=== PATIENT | female | born 1995 | race Caucasian/White ===

== ENCOUNTER 2017-02-09 17:34 | Emergency (ER) | payer BC ==
[2017-02-09 18:05] VITALS: BP 129/61
--- NOTE | 2017-02-09 18:19 | UC ---
Hand/Wrist HPI - HPI Summary HPI Summary: Pt presents with right hand pain and swelling for 3 days after punching a wall. Pt says she punched a wall out of anger. Next day had pain and swelling of right hand and wrist. Has been taking tylenol for pain. Denies previous injury, numbness, or tingling. - History Of Current Complaint Chief Complaint: UCUpperExtremity Stated Complaint: HAND INJURY Time Seen by Provider: 02/09/17 18:19 Hx Obtained From: Patient Hx Last Menstrual Period: 01/17/17 ?: No Onset/Duration: Sudden Onset Severity Initially: Severe Severity Currently: Severe Pain Intensity: 9 Pain Scale Used: 0-10 Numeric Character Of Pain: Sharp, Aching, Stiffness Aggravating Factor(s): Movement, Flexion, Extension Alleviating Factor(s): Rest, Ice - Allergies/Home Medications Allergies/Adverse Reactions: Allergies Allergy/AdvReac Type Severity Reaction Status Date / Time No Known Allergies Allergy Verified 02/09/17 18:05 Home Medications: Home Medications NK [No Home Medications Reported] 02/09/17 [History Confirmed 02/09/17] PMH/Surg Hx/FS Hx/Imm Hx Previously Healthy: Yes - Surgical History Surgical History: None - Family History Known Family History: Positive: None - Social History Occupation: Student Lives: Dormitory/Roommates Alcohol Use: Rare Substance Use Type: None Smoking Status (MU): Never Smoked Tobacco Review of Systems Constitutional: Negative Skin: Bruising - Right palm and dorsal hand Respiratory: Negative Cardiovascular: Negative Neurovascular: Negative Musculoskeletal: Decreased ROM - Right hand/fingers, Edema - Right hand, Other: - Pain right hand Neurological: Negative Psychological: Negative All Other Systems Reviewed And Are Negative: Yes Physical Exam Triage Information Reviewed: Yes Appearance: Well-Appearing, Well-Nourished Vital Signs: Initial Vital Signs Temp 98.4 F 02/09/17 18:00 Resp 20 02/09/17 18:00 BP 129/61 02/09/17 18:00 Pulse Ox 100 02/09/17 18:00 Vital Signs Reviewed: Yes Respiratory: Positive: Chest non-tender, Lungs clear, Normal breath sounds Cardiovascular: Positive: RRR, No Murmur Musculoskeletal: Positive: Strength Limited @ - Right wrist and fingers due to pain, ROM Limited @ - Right wrist and fingers due to pain, Edema @ - Dorsal aspect of right hand, Other: - Can wiggle all fingers. Flexion of 3rd and 4th digits >45deg produces pain. No snuffbox tenderness. FROM right wrist. Neurological: Positive: Alert Psychological: Positive: Age Appropriate Behavior Hand/Wrist Course/Dx - Course Course Of Treatment: XR negative for acute process. RICARDA wrap hand and wrist. F /u with Dr. Guadarrama this week - Differential Dx/Diagnosis Differential Diagnosis/HQI/PQRI: Contusion, Fracture, Sprain, Strain Provider Diagnoses: Right hand contusion Discharge - Discharge Plan Condition: Stable Disposition: HOME Patient Education Materials: Hand Sprain (ED) Referrals: No Primary Care Phys,NOPCP [Primary Care Provider] - Melba Guadarrama MD [Medical Doctor] - As Soon As Possible Additional Instructions: Follow up with orthopedics at their next available appointment. Keep hand ricarda wrapped and take ibuprofen for pain and swelling. If you develop fever, SOB, chest pain, new or worsening symptoms - please call our office or go to ED.
--- NOTE | 2017-02-09 18:56 | RAD ---
INDICATION: Pain at the distal radius and third metacarpal phalangeal joint following punching injury 3 days ago. COMPARISON: May 11, 2015 TECHNIQUE: AP, lateral, and oblique views RIGHT hand. REPORT: Normal articular alignment. Negative for fracture. Soft tissue swelling over the dorsum of the hand at the level of the metacarpals and metacarpal phalangeal joints. IMPRESSION: Dorsal soft tissue swelling. No fracture evident.
== END 2017-02-09 19:05 | disposition home or self-care (01) ==
LOC: UCEAST 17:34
DX: S60.221A Contusion of right hand, initial encounter (principal); W22.8XXA Striking against or struck by other objects, initial encounter; Y92.9 Unspecified place or not applicable
CPT/HCPCS: 99211; G0463